=== PATIENT | male | born 1975 | race Caucasian/White ===

== ENCOUNTER 2020-06-09 08:36 | Outpatient (CLI) | payer BC ==
--- NOTE | 2020-06-09 10:09 | CT ---
CT paranasal sinuses noncontrast: 06/09/2020 HISTORY: 44-year-old male with chronic sinusitis. FINDINGS: The frontal, ethmoid, maxillary, and sphenoid, sinuses, are clear. Bilateral sphenoethmoidal recesses and bilateral ostiomeatal units, are patent and clear. Leftward nasal septal deviation with spur contacting the vertical lamella of the left inferior turbin ate. Otherwise the rest of the nasal cavity is clear. Olfactory fossa: Right vertical depth: 6 mm: Keros type II Left vertical depth: 7 mm: Keros type III Frontal recesses: Patent and clear. Sphenoid sinus: Sellar variant (with thin bony posterior margin of the sphenoid sinus with the clivus ). Onodi cell: None Sphenoid sinus pneumatization: Left sphenoid air cell surrounds 180 degrees of the left optic nerve. Right sphenoid air cell surrounds between 45 to 90 degrees of right optic nerve. Anterior ethmoidal notch: There are small bilateral supraorbital pneumatized components of ethmoid ai r cells, placing bilateral anterior ethmoidal arteries at risk. Lamina papyracea: No dehiscence Frontal air cells: Type III bilaterally. IMPRESSION: 1.) Paranasal sinuses are currently clear. 2) sinus anatomical variants relevant for surgery as listed above.
== END 2020-06-09 08:37 | disposition home or self-care (01) ==
LOC: BICCT 08:36
PROVIDERS: ATTEND Allergy & Immunology
DX: J32.9 Chronic sinusitis, unspecified (principal)